=== PATIENT | female | born 1945 | race Caucasian/White ===

== ENCOUNTER 2017-07-15 05:48 | Inpatient (IN) | payer MEDICARE, SELFPAY ==
[2017-07-08 11:18] VITALS: BP 107/65; PULSE 58; RESP 17; TEMP 36.8; O2SAT 98; BMI 31.8
--- NOTE | 2017-07-08 11:45 | SDCEKG_ITS ---
Test Reason : Blood Pressure : / mmHG Vent. Rate : 058 BPM Atrial Rate : 058 BPM P-R Int : 176 ms QRS Dur : 074 ms QT Int : 396 ms P-R-T Axes : 028 017 047 degrees QTc Int : 388 ms Sinus bradycardia Low voltage QRS Borderline ECG Confirmed by DIANDRA MOORE ([id number]), multimedia editor FLETCHER SALVADOR ([id number]) on 07/11/2017 12:09:49 PM Referred By: HANNAH JONES Confirmed By:DIANDRA MOORE
[2017-07-08 12:33] LABS: Hematocrit 40.5 % (37-47); Mean Corp Hgb Conc 32.1 g/gl (32-36); Mean Corpuscular Hgb 30.1 pg (27.0-32.0); Mean Corpuscular Volume 93.8 fL (81-99); Mean Platelet Vol. 9.3 fl (6.2-12.0); Platelet Count 201 K/mm3 (150-450); RBC Distribution Width CV 13.4 % (11.6-14.6); RBC Distribution Width SD 46.1 fl (35.1-43.9); Red Blood Count 4.32 M/mm3 (4.2-5.4); White Blood Count 7.4 K/mm3 (4.4-11.0)
[2017-07-08 12:57] LABS: Scan Indicated on CBC? Y/N NO
[2017-07-08 13:14] LABS: Anion Gap 7 (5-15); BUN 15 mg/dL (7-18); BUN/Creat Ratio 21.4 RATIO (10-20); Calcium,Total 9.4 mg/dL (8.5-10.1); Chloride 105 mmol/L (98-107); EST Glomerular Filtration Rate 87 mL/min (>60); Est Glom Filt Rate - Afr Amer 105 mL/min (>60); Estimated Creatinine Clearance 39.63 ml/min; Glucose 94 mg/dL (70-110); Potassium 4.4 mmol/L (3.5-5.1); Sodium Level 137 mmol/L (136-145); Thyroid Stim Hormone (TSH) 0.89 uIU/mL (0.358-3.74)
[2017-07-15] VITALS (12 sets, daily range): BP systolic 121–181; BP diastolic 56–89; PULSE 59–99; RESP 16–18; TEMP 36.5–37.3; O2SAT 94–100; BMI 31.8
--- NOTE | 2017-07-15 | IMM_PTH ---
PATIENT: MELINDA YA LOC: MS3 U#:[id number] AGE/SX: 71/F ROOM: MS308 RE07/15/[address]: Dr. Titus Ordoñez MD : 1945 BED: 1 DIS: 07/18/2017 SPEC #: [id number] RECD: 07/17/17 12:54 STATUS: DANYEL REMago #: [id number] DANIEL: 07/15/17 00:[address]: Titus Ordoñez DEPT: IMMUNOHISTOCHEMISTRY RECD BY: Ana Luisa Reyna ENTERED: 07/17/17 12:55 SP TYPE: IMMUNO OTHR DR: Vy Arroyo, QUALITY HEAD-C Tissues: Right colon Procedures: MSH2 (add) MLH-1 (add) MSH6 (add) Anti-PMS2 (add) VILLALOBOS-2 (add) KI-67 (add) P53 (add) HER-2-KRYSTIN (initial) PHYSICIAN & INSTITUTION [place] [id number] SPECIMEN INFORMATION: Tissue Source: Right colon Clinical Info: Invasive adenocarcinoma right colon Specimen Number: [id number] #4 CPT code: 05198, 85175 x7 METHODOLOGY: Deparaffinized sections of prefer/formalin-fixed tissue or PAP/DQ stained slides are incubated with monoclonal/polyclonal antibodies/oligonucleotide probes. Localization is made via biotin free immunoperoxidase method. Appropriate controls are performed and reacted as expected. Results on target cell population are indicated in the following table: RESULTS: ANTIBODY / CLONE RESULT Block 4 COLON CANCER PROFILE (Prognostic Markers) Ki-67 (30-9) positive, high P53 (DO-7) positive, weak, rare cells MSH2 (25D12) positive MSH6 (44) positive MLH-1 (M1) negative PMS2 (ROI2663) negative VILLALOBOS-2 (SP21) positive Her-2neu (CB11) negative These tests were developed and their performance characteristics determined by [facility]. They may not have been cleared or approved by the U.S. Food and Drug Administration. The FDA has determined that such clearance or approval is not necessary. INTERPRETATION: Right colon, hemicolectomy: Invasive adenocarcinoma. Result of Microsatellite Instability Study: Positive (loss of mismatch protein; microsatellite instability detected), low. Complete loss of MLH1 and PMS2. SJ:kathya 07/18/17 Case has been reviewed in consultation with Dr. Woodson who concurs with the above diagnosis. IDC:AM
--- NOTE | 2017-07-15 08:05 | COL._PTH ---
PATIENT: MELINDA YA LOC: MS3 U#:[id number] AGE/SX: 71/F ROOM: MS308 RE07/15/[address]: Dr. Titus Ordoñez MD : 1945 BED: 1 DIS: 07/18/2017 SPEC #: [id number] RECD: 07/15/17 12:37 STATUS: DANYEL ANY #: [id number] DANIEL: 07/15/17 08:[address]: Titus Ordoñez DEPT: SURGICAL PATHOLOGY RECD BY: [place] ENTERED: 07/15/17 12:37 SP TYPE: COLON OTHR DR: Vy Arroyo, GEOTECHNICAL LABORATORY TECHNICIAN-C Tissues: Colon, NOS Procedures: Surgery Specimen Level HEADER OPERATION: Laparoscopic right hemicolectomy PRE-OP DIAGNOSIS: Invasive adenocarcinoma right colon, sessile polyp ascending colon TISSUE SUBMITTED: Right colon MICROSCOPIC DIAGNOSIS Right colon, hemicolectomy: Invasive mucinous adenocarcinoma. 25 out of 25 lymph nodes are negative for metastatic carcinoma. See cancer summary below. COLON CANCER SUMMARY: Specimen ? terminal ileum, cecum, appendix, ascending colon Procedure ? right hemicolectomy Specimen length ? cecum with ascending colon 11 cm in length, small intestine 7 cm in length and appendix 5 cm in length and 0.5 cm in diameter. Tumor site ? ascending colon Tumor size ? 2.3 x 2 x 0.5 cm Macroscopic tumor perforation ? not identified Histologic type ? mucinous adenocarcinoma Histologic grade ? low-grade well to moderately differentiated Histologic features suggestive of Microsatellite Instability: Intratumoral lymphocytic response (tumor infiltrating lymphocytes) ? mild to moderate Peritumoral lymphocytic response (Crohn-like) - mild to moderate Tumor subtype and differentiation: Mucinous tumor component - more than 50% Medullary tumor component ? not identified High histologic grade - mild to moderate Microscopic tumor extension ? tumor invades muscularis propria. Margins ? free of tumor The tumor is 5.3 cm away from the closest distal axial resection margin. Treatment effect ? no known presurgical therapy. Lymph-Vascular invasion ? not identified Perineural invasion ? not identified Tumor deposits - not identified Type of polyp in which invasive carcinoma arose ? none identified Lymph nodes: Number of lymph nodes examined - 25 Number of lymph nodes involved - 0 Distant metastasis ? not applicable Additional pathologic findings ? none identified Ancillary studies: See microsatellite instability study by IHC ([id number]) for complete details. Positive (loss of mismatch protein; microsatellite instability detected, low). Immunohistochemistry Studies for Mismatch Repair Proteins: MLH1 ? loss of nuclear positivity, tumor cells MSH2 - Intact nuclear positivity, tumor cells MSH6 - Intact nuclear positivity, tumor cells PMS2 ? loss of nuclear positivity, tumor cells Mutational Analysis ? not performed PATHOLOGIC STAGE: pT2 pN0 Mx The above summary is in compliance with [employer] [place] [employer] (CAP) Cancer Protocols Checklist and [place] Joint Committee on Cancer (AJCC), Staging Manual, 8th Ed. SJ:kathya 07/17/17 COMMENT Please make reference to previous specimen ([id number]) right colon polyp, biopsy with diagnosis of invasive moderately differentiated adenocarcinoma with mucinous change. Case has been reviewed in consultation with Dr. Woodson who concurs with the above diagnosis. IDC:AM MICROSCOPIC DESCRIPTION Slides are reviewed. GROSS DESCRIPTION Received in fixative is one container labeled with the patient's name and designated right colon. The specimen consists of a right hemicolectomy consisting of a 7 cm segment of small bowel with attached 11 cm segment of large bowel and attached 5 cm of the appendix that has an average diameter of 0.5 cm. Located approximately 5.3 cm from the distal margin of resection is a mcfarlane, ovoid, indurated lesion measuring 2.3 x 2 x 0.5 cm. The serosa in the area of the lesion is inked in black ink. The remainder of the bowel mucosa is light mcfarlane in color and free of mass lesions. Serial sections of the appendix does not reveal mass lesions. Present free in the container are two segments of bowel. One fragment measures 3.2 x 1 x 0.6 cm. The larger segment measures 4 x 2 x 1 cm. Both fragments do not contain lesions. Serial sections through the lesion does not reveal involvement by underlying bowel wall. The attached fibrofatty tissue contains a number of grossly unremarkable lymph nodes. Track Coach sections are submitted as follows: 1 ? product sales representative sections of bowel fragments free in container, 2 ? appendix and ileocecal valve, 3 ? proximal and distal mucosal margins, 4-6 ? tumor, totally submitted, 7-12 ? each cassette containing multiple lymph nodes. / AM:kathya 07/16/17 TC:0 CPT: 40551
--- NOTE | 2017-07-15 08:21 | PCM.OPRPT ---
Problem List (1) Adenocarcinoma of colon Status: Acute Report of Operation Date of Procedure: 07/15/17 Pre-Operative Diagnosis: ASCENDING COLON CANCER Post-Operative Diagnosis: ASCENDING COLON CANCER Surgery/Procedure Performed:: LAPAROSCOPIC RIGHT HEMICOLECTOMY acid wash operator: Gutierrez Middleton Type of Anesthesia:: General Anesthesiologist: Sekou Logan - ASA2 Specimen's removed: RIGHT HEMICOLON Drains: NONE Estimated Blood Loss (mL): <50 Fluids Replaced: 2200 Description of Procedure: The patient was brought to the operating suite. Sign in was performed verifying patient, site, procedure, position, and DVT prophylaxis with SCDs. Patient 1 g of cefotetan. Preoperative bowel prep of mechanical and antibiotic comprised of GoLYTELY and then neomycin 1gm and Flagyl 1 gm 3 doses evening before was given Following induction of general anesthetic. The patients abdomen was prepped and draped in the usual fashion. Timeout was performed verifying patient, site, position. Local anesthetic was injected below the umbilicus. Incision made and dissection carried down to the umbilical root fascia. 2 stay sutures were placed. Incision made in the fascia, the peritoneum entered under direct visualization. A 10 mm Barakat trocar was inserted and secured with the stay sutures. Pneumoperitoneum to 15 mmHg was insufflated. 2 5mm ports were placed in the standard midline position. Visual inspection revealed a normal-appearing liver without significant signs of any intrinsic lesions. There were adhesions from the previous cholecystectomy to the transverse colon. Adhesions of the colon to the right abdominal wall and some pelvic adhesions with the right tube and ovary adherent to the right lateral pelvic sidewall, as were all taken down with the Harmonic scalpel. Mobilization the avascular plane was undertaken from the base of the cecum up and around the hepatic flexure. Division of the lesser sac from the midline to the hepatic flexure was undertaken. When this was fully mobilized. The duodenum was visualized from the right flank region. Next, the terminal ileum area was brought up and a cleavage point noted in the mesentery. Harmonic Scalpel was used to create a window in the terminal ileal mesentery and division was taken down to the ileocolic root. Next the transverse colon was grasped and the vasculature coming from the middle colic vessel was identified. A window was made in the bare area proximal to the middle colic vessels just overlying the duodenal sweep. This was also fully divided. Dissection was then carried out at the ileal colic vessel root. The artery and vein were identified and doubly clipped proximally and doubly clipped distally with Hem-o-bebeto clips. With full dissection of the mesentery and full mobilization the colon, the umbilical incision was extended and a wound protector placed. The terminal ileum and cecum ascending colon part of the transverse colon were delivered through the wound protector. Complete division of the mesentery to the bowel was undertaken at both sites. The bowel was transected with an intestinal load echelon stapler. On this a functional stapled end-to-end anastomosis was performed between the ileum and transverse colon with an echelon stapler. The staple line was checked for hemostasis and following this the anastomosis closed with a TA stapler creating a wide triangle opening that was easily palpable. A 3-0 silk suture was used to take tension off the apex of the staple line and Betadine painted on the TA staple line. At this point, the specimen was opened on the back table. There was noted to be tumor in the expected location. Gown and gloves were changed. Reestablished. There is a significant mesenteric defect so the mesentery was closed with interrupted hemoclips to prevent internal herniation. There was good anatomic positioning of the small bowel. It was good hemostasis along the incisions. Pneumoperitoneum was reestablished. The 5mm ports were removed under direct visualization with no signs of bleeding. Pneumoperitoneum was released. The umbilical fascial defect was closed with a running 0 PDS suture. Subcutaneous fat reapproximated with interrupted 3-0 Vicryl sutures. Skin was closed with interrupted 4-0 Monocryl subcuticular sutures. Steri-Strips and bandages were applied. The patient was brought to recovery room in stable condition. - Admit VTE Documentation VTE Present on Admission: No VTE Mechan Device Prophylaxis: SCD's VTE Pharm Prophylaxis ordered?: No
--- NOTE | 2017-07-15 08:25 | OP.PCM_ITS ---
Problem List (1) Adenocarcinoma of colon Status: Acute Report of Operation Date of Procedure: 07/15/17 Pre-Operative Diagnosis: ASCENDING COLON CANCER Post-Operative Diagnosis: ASCENDING COLON CANCER Surgery/Procedure Performed:: LAPAROSCOPIC RIGHT HEMICOLECTOMY advanced research programs director: Gutierrez Middleton Type of Anesthesia:: General Anesthesiologist: Sekou Logan - ASA2 Specimen's removed: RIGHT HEMICOLON Drains: NONE Estimated Blood Loss (mL): <50 Fluids Replaced: 2200 Description of Procedure: The patient was brought to the operating suite. Sign in was performed verifying patient, site, procedure, position, and DVT prophylaxis with SCDs. Patient 1 g of cefotetan. Preoperative bowel prep of mechanical and antibiotic comprised of GoLYTELY and then neomycin 1gm and Flagyl 1 gm 3 doses evening before was given Following induction of general anesthetic. The patient?s abdomen was prepped and draped in the usual fashion. Timeout was performed verifying patient, site , position. Local anesthetic was injected below the umbilicus. Incision made and dissection carried down to the umbilical root fascia. 2 stay sutures were placed. Incision made in the fascia, the peritoneum entered under direct visualization. A 10 mm Barakat trocar was inserted and secured with the stay sutures. Pneumoperitoneum to 15 mmHg was insufflated. 2 5mm ports were placed in the standard midline position. Visual inspection revealed a normal-appearing liver without significant signs of any intrinsic lesions. There were adhesions from the previous cholecystectomy to the transverse colon. Adhesions of the colon to the right abdominal wall and some pelvic adhesions with the right tube and ovary adherent to the right lateral pelvic sidewall, as were all taken down with the Harmonic scalpel. Mobilization the avascular plane was undertaken from the base of the cecum up and around the hepatic flexure. Division of the lesser sac from the midline to the hepatic flexure was undertaken. When this was fully mobilized. The duodenum was visualized from the right flank region. Next, the terminal ileum area was brought up and a cleavage point noted in the mesentery. Harmonic Scalpel was used to create a window in the terminal ileal mesentery and division was taken down to the ileocolic root. Next the transverse colon was grasped and the vasculature coming from the middle colic vessel was identified. A window was made in the bare area proximal to the middle colic vessels just overlying the duodenal sweep. This was also fully divided. Dissection was then carried out at the ileal colic vessel root. The artery and vein were identified and doubly clipped proximally and doubly clipped distally with Hem-o- bebeto clips. With full dissection of the mesentery and full mobilization the colon, the umbilical incision was extended and a wound protector placed. The terminal ileum and cecum ascending colon part of the transverse colon were delivered through the wound protector. Complete division of the mesentery to the bowel was undertaken at both sites. The bowel was transected with an intestinal load echelon stapler. On this a functional stapled end-to-end anastomosis was performed between the ileum and transverse colon with an echelon stapler. The staple line was checked for hemostasis and following this the anastomosis closed with a TA stapler creating a wide triangle opening that was easily palpable. A 3-0 silk suture was used to take tension off the apex of the staple line and Betadine painted on the TA staple line. At this point, the specimen was opened on the back table. There was noted to be tumor in the expected location. Gown and gloves were changed. Reestablished. There is a significant mesenteric defect so the mesentery was closed with interrupted hemoclips to prevent internal herniation. There was good anatomic positioning of the small bowel. It was good hemostasis along the incisions. Pneumoperitoneum was reestablished. The 5mm ports were removed under direct visualization with no signs of bleeding. Pneumoperitoneum was released. The umbilical fascial defect was closed with a running 0 PDS suture. Subcutaneous fat reapproximated with interrupted 3-0 Vicryl sutures. Skin was closed with interrupted 4-0 Monocryl subcuticular sutures. Steri-Strips and bandages were applied. The patient was brought to recovery room in stable condition. - Admit VTE Documentation VTE Present on Admission: No VTE Mechan Device Prophylaxis: SCD's VTE Pharm Prophylaxis ordered?: No
[2017-07-15] MEDS: Bupivacaine Mpf 0.5% 30 ML VIAL (08:32)
[2017-07-15] MEDS: Lactated Ringers 1,000 ML 60 ML IV (14:09)
[2017-07-15] MEDS: Ondansetron 4 MG/2 ML Vial IV (14:10)
[2017-07-15] MEDS: Aspirin E.C. 81 MG Tablet PO (15:07)
[2017-07-15] MEDS: MELATONIN 10 MG TABLET PO (22:28)
[2017-07-16 03:13] VITALS: BP 126/48; PULSE 72; RESP 18; TEMP 37.1; O2SAT 98
[2017-07-16] MEDS: Lactated Ringers 1,000 ML 60 ML IV (04:49)
[2017-07-16] MEDS: Levothyroxine 50 MCG Tablet PO (04:54)
[2017-07-16] MEDS: Enoxaparin 40 MG/0.4 ML Syringe SC (04:54)
[2017-07-16] MEDS: Calcium Carbonate 500 MG Tablet 1000 MG PO (08:48)
[2017-07-16] MEDS: Multivitamins,Ther W-Minerals Tablet 1 TABLET PO (08:48)
[2017-07-16 09:00] VITALS: BP 121/61; PULSE 70; RESP 16; TEMP 37; O2SAT 95
[2017-07-16 09:03] VITALS: PULSE 70
[2017-07-16] MEDS: Metoprolol(XL)Succ 25 MG Tablet PO (09:03)
[2017-07-16] MEDS: Aspirin E.C. 81 MG Tablet PO (09:03)
[2017-07-16] MEDS: FLUoxetine 20 MG Capsule 40 MG PO (09:03)
[2017-07-16] MEDS: hydroCHLOROthiazide 25 MG Tablet PO (09:03)
[2017-07-16] MEDS: oxyCODONE 5 MG Tablet PO ×2 (09:07→16:55)
--- NOTE | 2017-07-16 12:38 | PCM.PN.SRG ---
Subjective: incisional pain - Physical Exam General: Alert, Oriented x3 Lungs: Clear to auscultation, Normal air movement Cardiovascular: Regular rate, Regular Rhythm Abdomen: Bowel Sounds Present, Soft, Non Tender, Hypoactive Bowel Sounds Vital Signs Temp Pulse Resp BP Pulse Ox 98.6 F 70 16 121/61 H 95 07/16/17 09:00 07/16/17 09:03 07/16/17 09:00 07/16/17 09:00 07/16/17 09:00 Oxygen Flow Rate 1 Oxygen Delivery Method Room Air Weight: 80.2 kg Body Mass Index (BMI) 31.8 Intake and Output for Last 24 Hours 07/14/17 07/15/17 07/16/17 23:59 23:59 23:59 Intake Total 2444 / 2444 896 / 896 Output Total 200 / 200 1250 / 1250 Balance 2244 / 2244 -354 / -354 Assessment/Plan POD # 1 s/p laparoscopic right hemicolectomy for ascending colon cancer. patient notes incisional pain which is controlled with IV analgesics. Will encourage oral analgesics and nonnarcotic analgesics. Hypoactive bowel sounds are noted. We will encourage chewing gum, ambulation sips of glucose to liquids until flatus is present. Will encourage incentive spirometry use and SCDs and low molecular weight heparin to prevent DVT.
--- NOTE | 2017-07-16 14:05 | CASEMGMT ---
RN SHERRON Face to Face with patient for initial transition planning/care coordination assessment. RN CM introduced self and role at [facility]. Patient lying in bed, alert and oriented, with family at bedside. Patient willing to participate in assessment and is able to answer all questions appropriately. Care providers, pharmacy, and demographics verified. See link attached. Patient wishes to discharge home, denies need for home health at this time. Patient states she has no further needs or concerns at this time. CM to follow for discharge planning needs that may arise. Disposition Plan: Patient to discharge home with family support and follow-up plans in place.
[2017-07-16 15:00] VITALS: BP 122/56; PULSE 74; RESP 16; TEMP 37.3; O2SAT 96
[2017-07-16 22:11] VITALS: BP 122/55; PULSE 80; RESP 14; TEMP 37.3; O2SAT 93
[2017-07-16] MEDS: MELATONIN 10 MG TABLET PO (22:26)
[2017-07-17 02:25] VITALS: BP 124/46; PULSE 75; RESP 14; TEMP 36.9; O2SAT 97
[2017-07-17] MEDS: oxyCODONE 5 MG Tablet PO (02:37)
--- NOTE | 2017-07-17 03:42 | NURSING ---
Noted pt has a rash on her neck/back non raised red rash. Does not itch. Notified pt's primary RN Afia. Afia had marked a few spots on her legs but it is now spreading.
[2017-07-17] MEDS: Levothyroxine 50 MCG Tablet PO (05:37)
[2017-07-17] MEDS: Enoxaparin 40 MG/0.4 ML Syringe SC (05:37)
--- NOTE | 2017-07-17 06:08 | PCM.PN.SRG ---
Subjective: + flatus, +BM x 2 - rash since last night - Physical Exam Vital Signs Temp Pulse Resp BP Pulse Ox 98.4 F 75 14 124/46 H 97 07/17/17 02:25 07/17/17 02:25 07/17/17 02:25 07/17/17 02:25 07/17/17 02:25 Oxygen Flow Rate 1 Oxygen Delivery Method Room Air Weight: 80.2 kg Body Mass Index (BMI) 31.8 Intake and Output for Last 24 Hours 07/15/17 07/16/17 07/17/17 23:59 23:59 23:59 Intake Total 2444 / 2444 896 / 896 1923 / 1923 Output Total 200 / 200 1250 / 1250 1600 / 1600 Balance 2244 / 2244 -354 / -354 323 / 323 Assessment/Plan POD # 2 s/p laparoscopic right hemicolectomy for ascending colon cancer. patient notes incisional pain which is controlled with IV analgesics. Will encourage oral analgesics and nonnarcotic analgesics. Normoactive bowel sounds are noted. We will encourage chewing gum, advance to regular diet. Rash - will stop lovenox, hold narcotics, benadryl Will encourage incentive spirometry use and SCDs and low molecular weight heparin to prevent DVT.
[2017-07-17] MEDS: DiphenhydrAMINE 25 MG Capsule 50 MG PO ×2 (07:27→22:07)
[2017-07-17 08:39] VITALS: BP 119/55; PULSE 80; RESP 16; TEMP 37.4; O2SAT 95
[2017-07-17] MEDS: Calcium Carbonate 500 MG Tablet 1000 MG PO (09:01)
[2017-07-17] MEDS: Multivitamins,Ther W-Minerals Tablet 1 TABLET PO (09:02)
[2017-07-17 10:27] VITALS: BP 119/55; PULSE 80
[2017-07-17] MEDS: Aspirin E.C. 81 MG Tablet PO (10:27)
[2017-07-17] MEDS: Metoprolol(XL)Succ 25 MG Tablet PO (10:27)
[2017-07-17] MEDS: FLUoxetine 20 MG Capsule 40 MG PO (10:28)
[2017-07-17 10:40] VITALS: BP 113/68; PULSE 87; RESP 18; TEMP 37.4; O2SAT 91
[2017-07-17 14:10] VITALS: BP 118/54; PULSE 90; RESP 18; TEMP 37.4; O2SAT 92
[2017-07-17] MEDS: Ibuprofen 400 MG Tablet PO (17:07)
[2017-07-17 20:21] VITALS: BP 106/50; PULSE 88; RESP 16; TEMP 37.1; O2SAT 97
[2017-07-18] MEDS: MELATONIN 10 MG TABLET PO (00:08)
[2017-07-18 03:00] VITALS: BP 118/78; PULSE 68; RESP 14; TEMP 36.7; O2SAT 98
[2017-07-18] MEDS: Levothyroxine 50 MCG Tablet PO (05:51)
--- NOTE | 2017-07-18 07:43 | PCM.DC.REC ---
Discharge Diet: No Restrictions Discharge Activity: Return to Normal Activity, May Not Drive - while taking narcotic pain medications. Additional Activity Instructions:: Do not drive or work with heavy equipment or sign legal documents for 24 hours. Be aware that pain medications may cause nausea. You should typically eat light foods as you take your pain medications. Pain medications may also cause constipation, if you have difficulty with this please discuss with your doctor. Additional Dressing/Incision Instructions:: Leave the operative bandage on for 2 days. Allergies/Adverse Reactions: Allergies fenofibrate [From Tricor] Allergy (Verified 07/08/17 11:11) unknown niacin Adverse Reaction (Verified 07/08/17 11:11) burning and flushing Medications to take at Discharge aspirin 81 mg tablet,delayed release 81 mg PO QDAY 06/14/17 cholecalciferol (vitamin D3) 2,000 unit tablet 4,000 unit PO QHS tab 06/14/17 hydrochlorothiazide 25 mg tablet 25 mg PO QDAY PRN 06/14/17 levothyroxine 50 mcg tablet 50 mcg PO QDAY tab 06/14/17 metoprolol succinate ER 25 mg tablet,extended release 24 hr 25 mg PO QDAY tab 06/18/17 multivitamin,nj-eorb-vlbryjtc tablet 1 tab PO QDAY 06/18/17 Calcium Carbonate [Tums Ultra Strength] 1,177 mg PO DAILY 07/08/17 Fluoxetine HCl 40 mg PO DAILY 07/08/17 Melatonin 10 mg PO QHS 07/08/17 Ibuprofen [Motrin] 400 mg PO Q4H PRN PRN tablet 07/18/17 Oxycodone [Oxyir] 5 mg PO Q4H PRN PRN #14 tab 07/18/17 The following prescriptions were given: Oxycodone [Oxyir] 5 mg PO Q4H PRN PRN #14 tab PRN Reason: Severe Pain (6-03/26) Primary Care Physician: Vy Arroyo [Primary Care Provider] - Please Follow Up With: Titus Ordoñez MD - [phone] When: Plan to have a follow up approximately 7 days after surgery.
--- NOTE | 2017-07-18 07:44 | PCM.PN.SRG ---
Subjective: ready to go home - Physical Exam General: Alert, Oriented x3, Cooperative Neck: Supple, No JVD, Negative Carotid Bruits Lungs: Clear to auscultation, Normal air movement Cardiovascular: Regular rate, No murmurs Abdomen: Bowel Sounds Present, Soft, Non Tender Vital Signs Temp Pulse Resp BP Pulse Ox 98.0 F 68 14 118/78 98 07/18/17 03:00 07/18/17 03:00 07/18/17 03:00 07/18/17 03:00 07/18/17 03:00 Oxygen Flow Rate 1 Oxygen Delivery Method Room Air Weight: 80.2 kg Body Mass Index (BMI) 31.8 Intake and Output for Last 24 Hours 07/16/17 07/17/17 07/18/17 23:59 23:59 23:59 Intake Total 896 / 896 3358 / 3358 1515 / 1515 Output Total 1250 / 1250 3300 / 3300 200 / 200 Balance -354 / -354 58 / 58 1315 / 1315 Assessment/Plan POD # 3 s/p laparoscopic right hemicolectomy for ascending colon cancer. patient notes incisional pain which is controlled with IV analgesics. Will encourage oral analgesics and nonnarcotic analgesics. Normoactive bowel sounds are noted. We will encourage chewing gum, advance to regular diet. Rash - will stop lovenox, hold narcotics, benadryl Will D/C to home today
--- NOTE | 2017-07-18 07:45 | PCM.DC.SUM ---
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 Additional Activity Instructions:: Do not drive or work with heavy equipment or sign legal documents for 24 hours. Be aware that pain medications may cause nausea. You should typically eat light foods as you take your pain medications. Pain medications may also cause constipation, if you have difficulty with this please discuss with your doctor. Additional Dressing/Incision Instructions:: Leave the operative bandage on for 2 days. Home Medications: Medications to take at Discharge aspirin 81 mg tablet,delayed release 81 mg PO QDAY 06/14/17 cholecalciferol (vitamin D3) 2,000 unit tablet 4,000 unit PO QHS tab 06/14/17 hydrochlorothiazide 25 mg tablet 25 mg PO QDAY PRN 06/14/17 levothyroxine 50 mcg tablet 50 mcg PO QDAY tab 06/14/17 metoprolol succinate ER 25 mg tablet,extended release 24 hr 25 mg PO QDAY tab 06/18/17 multivitamin,cw-ylma-bbfzvyfl tablet 1 tab PO QDAY 06/18/17 Calcium Carbonate [Tums Ultra Strength] 1,177 mg PO DAILY 07/08/17 Fluoxetine HCl 40 mg PO DAILY 07/08/17 Melatonin 10 mg PO QHS 07/08/17 Ibuprofen [Motrin] 400 mg PO Q4H PRN PRN tablet 07/18/17 Oxycodone [Oxyir] 5 mg PO Q4H PRN PRN #14 tab 07/18/17 Following Prescrptions Were Given to Patient: Oxycodone [Oxyir] 5 mg PO Q4H PRN PRN #14 tab PRN Reason: Severe Pain (6-03/26) Primary Care Physician: Vy Arroyo [Primary Care Provider] - Please Follow Up With: Titus Ordoñez MD - [phone] When: Plan to have a follow up approximately 7 days after surgery. Meaningful Use Info Meaningful Use Diagnoses (Choose all that apply): None applicable
[2017-07-18 08:13] VITALS: PULSE 75
[2017-07-18] MEDS: Metoprolol(XL)Succ 25 MG Tablet PO (08:13)
[2017-07-18] MEDS: Multivitamins,Ther W-Minerals Tablet 1 TABLET PO (08:14)
[2017-07-18] MEDS: Calcium Carbonate 500 MG Tablet 1000 MG PO (08:14)
[2017-07-18] MEDS: FLUoxetine 20 MG Capsule 40 MG PO (08:14)
[2017-07-18] MEDS: hydroCHLOROthiazide 25 MG Tablet PO (08:15)
[2017-07-18] MEDS: Aspirin E.C. 81 MG Tablet PO (08:15)
[2017-07-18 08:50] VITALS: BP 119/58; PULSE 75; RESP 18; TEMP 37; O2SAT 96
== END 2017-07-18 11:46 | disposition home or self-care (01) | DRG 331 ==
PROVIDERS: Anesthesiology; Admitting Provider Surgery; Family Provider Nurse Practitioner; PCP Nurse Practitioner; Visit Provider Surgery
PROC: 0DTF4ZZ Resection of Right Large Intestine, Percutaneous Endoscopic Approach (ICD-10-PCS; CPT 44205; principal; 2017-07-15 07:45)
DX: C18.2 Malignant neoplasm of ascending colon (principal); I34.1 Nonrheumatic mitral (valve) prolapse; E03.9 Hypothyroidism, unspecified; I10 Essential (primary) hypertension; R21 Rash and other nonspecific skin eruption; E78.00 Pure hypercholesterolemia, unspecified; F32.9 Major depressive disorder, single episode, unspecified; E66.9 Obesity, unspecified; Z68.31 Body mass index [BMI] 31.0-31.9, adult; Z79.899 Other long term (current) drug therapy
CPT/HCPCS: 36415; 80048; 84443; 85027; 88309; 88341; 88342; 93005; J7120; J2405